=== PATIENT | female | born 1980 | race Caucasian/White ===

== ENCOUNTER 2019-01-27 07:07 | Inpatient (IN) | payer OTHER ==
[~2019-01-27] VITALS: Ht 170.2 cm; Wt 90.7 kg
[~2019-01-27 07:07] MED LIST: ULTRACET PO; ZITHROMAX TRI-500 MG PO
[2019-01-27] MEDS ORDERED: OBSTETRIX DHA1 EACH PO (08:05)
[2019-01-27] MEDS ORDERED: FERROUS SULFAT325 MG (08:10)
== END 2019-01-29 14:39 | disposition home or self-care (01) | DRG 806 ==
LOC: LDR 07:07 → OB/GYN 19:17
PROVIDERS: ADMIT Obstetrics & Gynecology
PROC: 10E0XZZ Delivery of Products of Conception, External Approach (ICD-10-PCS; principal; 2019-01-27)
PROC: 0HQ9XZZ Repair Perineum Skin, External Approach (ICD-10-PCS; 2019-01-27)
PROC: 3E033VJ Introduction of Other Hormone into Peripheral Vein, Percutaneous Approach (ICD-10-PCS; 2019-01-27)
PROC: 10907ZC Drainage of Amniotic Fluid, Therapeutic from Products of Conception, Via Natural or Artificial Opening (ICD-10-PCS; 2019-01-27)
PROC: 4A1HXCZ Monitoring of Products of Conception, Cardiac Rate, External Approach (ICD-10-PCS; 2019-01-27)
DX: O70.0 First degree perineal laceration during delivery (principal); O41.03X0 Oligohydramnios, third trimester, not applicable or unspecified; Z37.0 Single live birth; Z3A.38 38 weeks gestation of pregnancy